=== PATIENT | male | born 1950 | race Two or more races ===

== ENCOUNTER 2024-07-25 11:08 | Inpatient (IN) | payer OTHER ==
[~2024-07-25] VITALS: Ht 165.1 cm; Wt 70.0 kg
[2024-07-25 13:27] LABS: Basophils # (auto) 0 10 ^3/uL (0-0.2); Basophils % (auto) 0.7 % (0.0-2.0); Eosinophils # (auto) 0.1 10 ^3/uL (0-0.8); Eosinophils % (auto) 1.7 % (0.0-7.0); Hematocrit 39.8 % (41.0-53.0); Hemoglobin 13.1 g/dL (13.5-17.5); Lymphocytes # (auto) 1.6 10 ^3/uL (0.4-5.4); Lymphocytes % (auto) 27.6 % (10.0-50.0); Mean Corpuscular Hemoglobin 30.9 pg (28.0-32.0); Mean Corpuscular Hgb Conc. 32.9 g/dL (32.0-36.0); Mean Corpuscular Volume 93.9 fL (80.0-100.0); Monocytes # (auto) 0.4 10 ^3/uL (0-1.3); Monocytes % (auto) 6.2 % (0.0-12.0); Neutrophils # (auto) 3.7 10 ^3/uL (1.6-8.6); Neutrophils % (auto) 63.8 % (37.0-80.0); Nucleated Red Blood Cells % 0.1 %; Platelet Count (auto) 333 10^3/uL (140-450); Red Blood Cells 4.24 10^6/uL (4.5-5.90); White Blood Cell 5.8 10^3/uL (4.4-10.8)
[2024-07-25 13:31] LABS: Urine Bacteria None Seen /hpf (None Seen)
[2024-07-25 13:43] LABS: Urine Blood Negative /uL (Negative); Urine Clarity Clear (Clear); Urine Color Yellow (Yellow); Urine Protein, UAD Negative (Negative); Urine Specific Gravity 1.029 (1.001-1.035); Urine Squamous Epithelial Cell FEW /hpf (<5); Urine Urobilinogen Normal (Negative); Urine WBC 2 /HPF (0-3)
[2024-07-25 13:46] LABS: Alanine Aminotransferase 23 U/L (7-40); Anion Gap 7 (5-15); Aspartate Aminotransferase 17 U/L (13-40); BUN/Creatinine Ratio 11.2 (10.0-20.0); Blood Urea Nitrogen 10 mg/dL (9-23); Calcium 9.8 mg/dL (8.7-10.4); Chloride 100 mmol/L (98-107); Potassium 4.2 mmol/L (3.5-5.1); Sodium 139 mmol/L (136-145); Total Protein 7.4 g/dL (5.7-8.2)
[2024-07-25 13:47] LABS: Carbon Dioxide 32 mmol/L (20-31); Glucose 225 mg/dL (74-106)
[2024-07-25 13:48] LABS: Alkaline Phosphatase 156 U/L (46-116); Bilirubin, Total 0.3 mg/dL (0.2-1.0)
--- NOTE | 2024-07-25 14:20 | DVH ---
EXAM: XY CHEST XRAY 1 VIEW Indication: Pain, r/o pna Technique: Single frontal view of the chest was obtained Comparison: None FINDINGS: Lines and Tubes: None Lungs: Multifocal diffuse interstitial opacities. Pleura: No effusion. No pneumothorax. Cardiomediastinal contours: Unremarkable Bones: No acute osseous abnormality. IMPRESSION: Multifocal diffuse interstitial opacities suggestive of atypical infection.
[2024-07-25] MEDS: SODIUM CHLORIDE 0.9% 1,000 ML IV ONE (14:49)
--- NOTE | 2024-07-25 14:51 | ED.PDOC ---
History of present illness HPI Comments This is a pleasant 73-year-old male who lives alone with a history of uncontrolled diabetes who was brought in by his daughter with a chief complaint of generalized weakness. Daughter reports patient was diagnosed at [facility] with the diabetes one year ago. Patient was prescribed Lantus and Humalog and states he ran out of his medication over six months ago and does not follow up with PCP. Also states he does not check his sugars at home and is nonadherent to his medications. Patient was brought in by Sadia his daughter in the phone number is [phone] Chief Complaint: Diabetes Time Seen by MD: 11:35 History of present illness: Nurses Notes, Medications, Allergies Allergies: Coded Allergies: NO KNOWN ALLERGIES (Unverified , 07/25/24) Home Meds Active Scripts Insulin Glargine (Lantus Solostar) 100 Unit/Ml Inj, 20 UNIT SC BID for 30 Days, #15 ML Prov:EMEKA FLORES MD 07/28/24 Azithromycin (Zithromax) 500 Mg Tab, 500 MG PO DAILY for 4 Days, #4 TAB Prov:EMEKA FLORES MD 07/28/24 Amoxicillin & Pot Clavulanate (AUGMENTIN TABLET) 875 Mg Tb, 875 MG PO BID for 10 Days, #20 TAB Prov:EMEKA FLORES MD 07/28/24 Information Source: Patient Mode of Arrival: Ambulatory All Other Systems: Reviewed and Negative (per hpi) Physical Exam General Appearance: No Apparent Distress, Normal HEENT: Normal ENT Inspection, Pharynx Normal, TMs Normal Neck: Full Range of Motion, Non-Tender, Normal, Normal Inspection Respiratory: Chest Non-Tender, Lungs Clear, No Accessory Muscle Use, No Resp iratory Distress, Normal Breath Sounds Cardiovascular: No Murmur, No Gallop, Regular Rate/Rhythm Breast Exam: Deferred Gastrointestinal: No Organomegaly, Non Tender, No Pulsatile Mass, Normal Bowel Sounds, Soft Genitalia: Deferred Pelvic: Deferred Rectal: Deferred Extremities: No calf tenderness, Normal capillary refill, Normal inspection, Normal range of motion, Non-tender, No pedal edema Musculoskeletal : Apperance: Normal Neurologic: Alert, No Motor Deficits, Normal Affect, Normal Mood, No Sensory Deficits Cerebellar Function: Normal Reflexes: Normal Skin: Dry, Normal Color, Warm Lymphatic: No Adenopathy Was a procedure done? Was a procedure done?: No Differential Diagnosis (DM) Differential Diagnosis: DKA, Electrolyte Abnormality, Hyperglycemia, Hypoglycemia, UTI, Other X-Ray, Labs, Meds, VS Vital Signs Date Time Temp Pulse Resp B/P (MAP) Pulse Ox O2 Delivery O2 Flow Rate FiO2 07/25/24 11:51 89 14 98 Room Air 07/25/24 11:51 98.2 89 14 124/71 (88) 98 98.2 07/25/24 11:34 98.2 88 14 124/71 (88) 98 98.2 Lab Test 07/25/24 13:52 07/25/24 13:30 07/25/24 13:00 07/25/24 12:05 Range/Units Troponin I High Sensitivity < 3 L < 3 L </=54 ng/L Urine Color Yellow Yellow Urine Clarity Clear Clear Urine pH 7.0 5.0-9.0 Urine Specific [place] 1.029 1.001-1.035 Urine Protein Negative Negative Urine Ketones Negative Negative Urine Blood Negative Negative /uL Urine Nitrite Negative Negative Urine Bilirubin Negative Negative Urine Urobilinogen Normal Negative mg/dL Urine Leukocyte Esterase 1+ Negative /uL Urine RBC 9 0 - 3 /hpf Urine Microscopic WBC 2 0-3 /HPF Urine Squamous Epithelial Cells Few <5 /hpf Urine Bacteria None seen None Seen /hpf Urine Glucose 4+ H Normal mg/dL White Blood Count 5.8 4.4-10.8 10^3/uL Red Blood Count 4.24 L 4.5-5.90 10^6/uL Hemoglobin 13.1 L 13.5-17.5 g/dL Hematocrit 39.8 L 41.0-53.0 % Mean Corpuscular Volume 93.9 80.0-100.0 fL Mean Corpuscular Hemoglobin 30.9 28.0-32.0 pg Mean Corpuscular Hemoglobin Concent 32.9 32.0-36.0 g/dL Red Cell Distribution Width 14.0 11.8-14.3 % Platelet Count 333 140-450 10^3/uL Mean Platelet Volume 8.3 6.9-10.8 fL Neutrophils (%) (Auto) 63.8 37.0-80.0 % Lymphocytes (%) (Auto) 27.6 10.0-50.0 % Monocytes (%) (Auto) 6.2 0.0-12.0 % Eosinophils (%) (Auto) 1.7 0.0-7.0 % Basophils (%) (Auto) 0.7 0.0-2.0 % Neutrophils # (Auto) 3.7 1.6-8.6 10 ^3/uL Lymphocytes # (Auto) 1.6 0.4-5.4 10 ^3/uL Monocytes # (Auto) 0.4 0-1.3 10 ^3/uL Eosinophils # (Auto) 0.1 0-0.8 10 ^3/uL Basophils # (Auto) 0 0-0.2 10 ^3/uL Nucleated Red Blood Cells 0.1 % Sodium Level 139 136-145 mmol/L Potassium Level 4.2 3.5-5.1 mmol/L Chloride Level 100 98-107 mmol/L Carbon Dioxide Level 32 H 20-31 mmol/L Anion Gap 7 5-15 Blood Urea Nitrogen 10 9-23 mg/dL Creatinine 0.89 0.700-1.30 mg/dL Glomerular Filtration Rate Calc 91 >90 mL/min BUN/Creatinine Ratio 11.2 10.0-20.0 Serum Glucose 225 H 74-106 mg/dL Lactic Acid Level 0.9 0.4-2.0 mmol/L Calcium Level 9.8 8.7-10.4 mg/dL Total Bilirubin 0.3 0.2-1.0 mg/dL Aspartate Amino Transferase (AST) 17 13-40 U/L Alanine Aminotransferase (ALT) 23 7-40 U/L Alkaline Phosphatase 156 H 46-116 U/L B-Type Natriuretic Peptide 88.47 0-100 pg/mL Total Protein 7.4 5.7-8.2 g/dL Albumin 4.0 3.2-4.8 g/dL POC Glucose 246 H 70-106 mg/dl PATIENT: DOROTHY ZAPATAACCT: [id number]: [id number] : 1950 LOC: ER ROOM / BED: / AGE / SEX: 73 / M ADM STATUS: REG ER SERVICE [id number] ORDERING PHYSICIAN: LOI MEDINA NP PROCEDURE(s): CXR1 - CHEST XRAY 1 VIEW REASON: r/o pna ORDER NUMBER(s): [id number], ACCESSION NUMBER(s): [id number] EXAM: XY CHEST XRAY 1 VIEW Indication: Pain, r/o pna Technique: Single frontal view of the chest was obtained Comparison: None FINDINGS: Lines and Tubes: None Lungs: Multifocal diffuse interstitial opacities. Pleura: No effusion. No pneumothorax. Cardiomediastinal contours: Unremarkable Bones: No acute osseous abnormality. IMPRESSION: Multifocal diffuse interstitial opacities suggestive of atypical infection. ATED BY: JUDD LIVINGSTON MD DICTATED DATE/TIME: 07/25/241416 SIGNED BY: JUDD LIVINGSTON MD SIGNED DATE/TIME: 07/25/241416 X-Ray, Labs, Meds, VS Comment This is a pleasant 73-year-old male who lives alone with a history of uncontrolled diabetes who was brought in by his daughter with a chief complaint of generalized weakness. Labs and imaging were ordered Chest x-ray shows Multifocal diffuse interstitial opacities suggestive of atypical infection. In the emergency department IV Hep-Lock was established and the patient received 1 L normal saline and azithromycin x1 Based on the patient's abnormal x-ray and uncontrolled diabetes, patients case will be discussed with the admitting team for admission Needs DM f/u Will place social work consult Time of 1ST Reevaluation: 14:44 Reevaluation 1ST: Improved Patient Education/Counseling: Diagnosis, Treatment Family Education/Counseling: Diagnosis, Treatment Departure 1 Departure Time of Disposition: 14:49 Impression: Primary Impression: Atypical pneumonia Additional Impressions: Uncontrolled diabetes mellitus Qualified Codes: E13.649 - Other specified diabetes mellitus with hypoglycemia without coma Hyperglycemia Disposition: ADMITTED INPATIENT Condition: Serious e-Prescriptions Insulin Glargine (Lantus Solostar) 100 Unit/Ml Inj 20 UNIT SC BID for 30 Days, #15 ML Prov: EMEKA FLORES MD 07/28/24 Azithromycin (Zithromax) 500 Mg Tab 500 MG PO DAILY for 4 Days, #4 TAB Prov: EMEKA FLORES MD 07/28/24 Amoxicillin & Pot Clavulanate (AUGMENTIN TABLET) 875 Mg Tb 875 MG PO BID for 10 Days, #20 TAB Prov: EMEKA FLORES MD 07/28/24 Critical Care Note Critical Care Time?: No Stability Stability form required: No Heart Score Heart Score: Heart Score Response (Comments) Value History N/A 0 EKG N/A 0 Age N/A 0 Risk Factors N/A 0 Troponin N/A 0 Total 0 LOI MEDINA NP Jul 25, 2024 14:50
[2024-07-25] MEDS: AZITHROMYCIN 500MG/ 250ML 250 ML IV ONE ×2 (14:56→23:17)
--- NOTE | 2024-07-25 16:52 | DVHHP2 ---
History of Present Illness Reason for Visit: generalized weakness History of Present Illness 73-year-old male past medical history diabetes denies surgical history chief complaint patient comes in with generalized this. He has been dealing with these symptoms for about a week. He does state he has a cough with the there was no phlegm no fever no chest pain no shortness with the breath. He denies any calf pain or leg swelling. She denies any nausea or vomiting or diarrhea. According to the ED records patient was on insulin for diabetes he was diagnosed one year ago he is currently not on medication he has been out of the meds for the last six months. When evaluating patient's labs and imaging azithromycin was provided normal saline hemoglobin was 13.1 and 39.8 CO2 was 32 glucose was 225 lactate was negative troponin x2 was negative BNP was negative chest x-ray showed pneumonia. With these findings we will admit for bacterial pneumonia and IV antibiotics Past Medical History Diabetes Past Surgical History Denies surgical history Family History Reviewed, non-contributory to the management of this case. Past Social History Denies drinking smoking or drug use Review of Systems Constitutional: No: Fever, Chills, Sweats, Weakness, Malaise, Other Eyes: No: Pain, Vision change, Conjunctivae inflammation, Eyelid inflammation, Other, Redness ENT: No: Ear pain, Ear discharge, Nose pain, Nose discharge, Nose congestion, Mouth pain, Mouth swelling, Throat pain, Throat swelling, Other Respiratory: Cough, Shortness of breath, SOB with excertion; No: Dry, Wheezing, Hemoptysis, Pleuritic Pain, Sputum, Wheezing, Other Cardiovascular: No: Chest Pain, Palpitations, Orthopnea, Paroxysmal Noc. Dyspnea, Edema, Lt Headedness, Other Gastrointestinal: No: Nausea, Vomiting, Abdominal Pain, Diarrhea, Constipation, Melena, Hematochezia, Other Genitourinary: No Dysuria, No Frequency, No Incontinence, No Hematuria, No Retention, No Other Musculoskeletal: No: other, neck pain, shoulder pain, arm pain, back pain, hand pain, leg pain, foot pain Skin: No: Rash, Lesions, Jaundice, Bruising, Other Neurological: Weakness; No: Numbness, Incoordination, Change in speech, Confusion, Seizures, Other Allergies: Coded Allergies: NO KNOWN ALLERGIES (Unverified , 07/25/24) Exam Vital Signs Vital Signs Date Time Temp Pulse Resp B/P (MAP) Pulse Ox O2 Delivery O2 Flow Rate FiO2 07/25/24 11:51 89 14 98 Room Air 07/25/24 11:51 98.2 124/71 (88) 98.2 General Appearance: Alert, Oriented X3, Cooperative, No acute distress HEENT: Atraumatic, PERRLA, EOMI, Mucous membr. moist/pink Respiratory: Other (coarse rales heard throughout ) Cardiovascular: Regular rate, Normal S1, Normal S2, No murmurs Abdominal: Normal bowel sounds, Soft, No tenderness, No hepatospenomegaly, No masses Extremities: No clubbing, No cyanosis, No edema, Normal pulses, No tenderness/swelling Skin: No rashes, No breakdown, No significant lesion Neuro: Normal gait, Normal speech, Strength at 5/5 X4 ext, Normal tone, Sensation intact, Cranial nerves 3-12 NL Psych/Mental Status: Mental status NL, Mood NL Labs/Xrays Reviewed Labs Labs I reviewed labs, imaging CT scan abdomen pelvis, EKG and all diagnostic studies on this patient from ED records and the medical chart Chest x-ray found pneumonia Test 07/25/24 13:52 07/25/24 13:30 07/25/24 13:00 07/25/24 12:05 Range/Units Troponin I High Sensitivity < 3 L </=54 ng/L Urine Color Yellow Yellow Urine Clarity Clear Clear Urine pH 7.0 5.0-9.0 Urine Specific [place] 1.029 1.001-1.035 Urine Protein Negative Negative Urine Ketones Negative Negative Urine Blood Negative Negative /uL Urine Nitrite Negative Negative Urine Bilirubin Negative Negative Urine Urobilinogen Normal Negative mg/dL Urine Leukocyte Esterase 1+ Negative /uL Urine RBC 9 0 - 3 /hpf Urine Microscopic WBC 2 0-3 /HPF Urine Squamous Epithelial Cells Few <5 /hpf Urine Bacteria None seen None Seen /hpf Urine Glucose 4+ H Normal mg/dL White Blood Count 5.8 4.4-10.8 10^3/uL Red Blood Count 4.24 L 4.5-5.90 10^6/uL Hemoglobin 13.1 L 13.5-17.5 g/dL Hematocrit 39.8 L 41.0-53.0 % Mean Corpuscular Volume 93.9 80.0-100.0 fL Mean Corpuscular Hemoglobin 30.9 28.0-32.0 pg Mean Corpuscular Hemoglobin Concent 32.9 32.0-36.0 g/dL Red Cell Distribution Width 14.0 11.8-14.3 % Platelet Count 333 140-450 10^3/uL Mean Platelet Volume 8.3 6.9-10.8 fL Neutrophils (%) (Auto) 63.8 37.0-80.0 % Lymphocytes (%) (Auto) 27.6 10.0-50.0 % Monocytes (%) (Auto) 6.2 0.0-12.0 % Eosinophils (%) (Auto) 1.7 0.0-7.0 % Basophils (%) (Auto) 0.7 0.0-2.0 % Neutrophils # (Auto) 3.7 1.6-8.6 10 ^3/uL Lymphocytes # (Auto) 1.6 0.4-5.4 10 ^3/uL Monocytes # (Auto) 0.4 0-1.3 10 ^3/uL Eosinophils # (Auto) 0.1 0-0.8 10 ^3/uL Basophils # (Auto) 0 0-0.2 10 ^3/uL Nucleated Red Blood Cells 0.1 % Sodium Level 139 136-145 mmol/L Potassium Level 4.2 3.5-5.1 mmol/L Chloride Level 100 98-107 mmol/L Carbon Dioxide Level 32 H 20-31 mmol/L Anion Gap 7 5-15 Blood Urea Nitrogen 10 9-23 mg/dL Creatinine 0.89 0.700-1.30 mg/dL Glomerular Filtration Rate Calc 91 >90 mL/min BUN/Creatinine Ratio 11.2 10.0-20.0 Serum Glucose 225 H 74-106 mg/dL Lactic Acid Level 0.9 0.4-2.0 mmol/L Calcium Level 9.8 8.7-10.4 mg/dL Total Bilirubin 0.3 0.2-1.0 mg/dL Aspartate Amino Transferase (AST) 17 13-40 U/L Alanine Aminotransferase (ALT) 23 7-40 U/L Alkaline Phosphatase 156 H 46-116 U/L B-Type Natriuretic Peptide 88.47 0-100 pg/mL Total Protein 7.4 5.7-8.2 g/dL Albumin 4.0 3.2-4.8 g/dL POC Glucose 246 H 70-106 mg/dl Assessment/Plan Assessment/Plan acute bacterial community acquired pneumonia found on cxr ordered azithromax and ceftriaxone for now ordered o2 prn to keep sats .92% sputum prn uncontrolled type 2 dm without dka ISS hemoglobin a1c can be ordered by rounding team fen/ppx diet ivf for now no gi ppx since no hx of gerds or gi bleed scd lovenox plan admit to medicine for management of glucose and pna Plan discussed with: Patient Date of Service: Jul 25, 2024 Billing Provider: JOSE CARLOS ELENA DNP Common Visit Codes: [id number] INP/OBS CARE (HIGH) JOSE CARLOS ELENA DNP Jul 25, 2024 16:52
[2024-07-25] MEDS ORDERED: NITROGLYCERIN 0.4 MG SL TAB SL PRN (19:00)
[2024-07-25] MEDS ORDERED: ONDANSETRON HCL 4 MG/2 ML VIAL IV PRN (19:00)
[2024-07-25] MEDS ORDERED: DEXTROSE (50%) 50ML SYRG IV PRN (19:00)
[2024-07-25] MEDS ORDERED: DOCUSATE SOD 100 MG CAP PO PRN (19:00)
[2024-07-25] MEDS ORDERED: MORPHINE SULFATE INJ 2 MG/ml SYRG IV PRN (19:00)
[2024-07-25] MEDS: InsuLIN REG 1unit/0.01ml Soln (100units/ml) SC SCH (22:00)
[2024-07-25] MEDS: ACCU-CHEK COMFORT CURVE STRIP VI SCH (22:54)
[2024-07-25] MEDS: cefTRIAXone 1GM/50ML D5W 50 ML IV ONE (22:59)
[2024-07-25 23:13] VITALS: BP 115/76; PULSE 70; RESP 18; TEMP 97.7; O2SAT 97
[2024-07-26] VITALS (7 sets, daily range): BP systolic 105–120; BP diastolic 64–78; PULSE 68–76; RESP 16–19; TEMP 97.7–98.3; O2SAT 97–99
[2024-07-26] MEDS: SODIUM CHLORIDE 0.9% 1,000 ML IV SCH (04:08)
[2024-07-26] MEDS: InsuLIN REG 1unit/0.01ml Soln (100units/ml) SC SCH (06:16)
[2024-07-26 07:22] LABS: Basophils # (auto) 0.1 10 ^3/uL (0-0.2); Basophils % (auto) 0.9 % (0.0-2.0); Eosinophils # (auto) 0.2 10 ^3/uL (0-0.8); Eosinophils % (auto) 3.1 % (0.0-7.0); Hemoglobin 11.9 g/dL (13.5-17.5); Lymphocytes # (auto) 2.1 10 ^3/uL (0.4-5.4); Lymphocytes % (auto) 36.7 % (10.0-50.0); Mean Corpuscular Hemoglobin 31.9 pg (28.0-32.0); Monocytes # (auto) 0.5 10 ^3/uL (0-1.3); Monocytes % (auto) 8.2 % (0.0-12.0); Neutrophils % (auto) 51.1 % (37.0-80.0); Nucleated Red Blood Cells % 0.1 %; Platelet Count (auto) 282 10^3/uL (140-450); Red Blood Cells 3.73 10^6/uL (4.5-5.90); Red Cell Distribution Width 13.8 % (11.8-14.3); White Blood Cell 5.9 10^3/uL (4.4-10.8)
[2024-07-26 07:59] LABS: Alanine Aminotransferase 18 U/L (7-40); Alkaline Phosphatase 116 U/L (46-116); Anion Gap 10 (5-15); Aspartate Aminotransferase 15 U/L (13-40); Calcium 9.2 mg/dL (8.7-10.4); Carbon Dioxide 27 mmol/L (20-31); Chloride 103 mmol/L (98-107); Glucose 107 mg/dL (74-106); Potassium 3.5 mmol/L (3.5-5.1); Sodium 140 mmol/L (136-145)
[2024-07-26 08:00] LABS: Albumin 3.3 g/dL (3.2-4.8); Bilirubin, Total 0.3 mg/dL (0.2-1.0); Total Protein 6.4 g/dL (5.7-8.2)
[2024-07-26] MEDS: cefTRIAXone 1GM/50ML D5W 50 ML IV SCH (08:44)
[2024-07-26 08:49] LABS: BUN/Creatinine Ratio 18.6 (10.0-20.0); Blood Urea Nitrogen 13 mg/dL (9-23)
[2024-07-26] MEDS: AZITHROMYCIN 500MG/ 250ML 250 ML IV SCH (08:49)
[2024-07-26] MEDS: ENOXAPARIN SOD 40 MG/0.4 ML SYRINGE SC SCH (08:49)
--- NOTE | 2024-07-26 15:58 | DVHPN2 ---
Subjective Continues to complain of cough; Amharic-speaking; staff translated Reviewed: Care Plan, H&P, Labs, Medications, Previous Orders, Radiology Changes from previous H/P or p: No Changes Objective Vitals Vital Signs Date Time Temp Pulse Resp B/P (MAP) Pulse Ox O2 Delivery O2 Flow Rate FiO2 07/26/24 13:30 97.9 69 18 105/68 (80) 99 97.9 07/26/24 03:33 Room Air* 0 21 Intake/Output Intake and Output 07/26/24 07:00 Intake Total 125 ml Output Total 550 ml Balance -425 ml Intake Oral 125 ml Output Urine Total 550 ml General Appearance: Alert, Oriented X3, Cooperative, No acute distress HEENT: Atraumatic Lungs: Other (Scattered crackles) Cardiovascular: Regular rate, Normal S1, Normal S2 Abdomen: Normal bowel sounds, Soft, No tenderness Extremities: No edema Neuro: Normal speech, Cranial nerves 3-12 NL Psych/Mental Status: Mental status NL, Mood NL Medications Current Medications Medications Dose Ordered Sig/Vishnu Route Start Time Stop Time Status Last Admin Dose Admin Sodium Chloride 1,000 ml @ 120 mls/hr Q8H20M IV 07/25/24 19:00 07/26/24 04:08 120 MLS/HR Ondansetron HCl 4 mg Q4HP PRN IV 07/25/24 19:00 Docusate Sodium 100 mg BIDPRN PRN PO 07/25/24 19:00 Enoxaparin Sodium 40 mg DAILY SC 07/26/24 10:00 07/26/24 08:49 40 MG Morphine Sulfate 2 mg Q4HPRN PRN IV 07/25/24 19:00 Nitroglycerin 0.4 mg Q5MINP PRN SL 07/25/24 19:00 Diagnostic Test (Pha) 1 strip ACHS 07/25/24 22:00 07/26/24 11:56 1 STRIP Insulin Human Regular HS SC 07/25/24 22:00 Insulin Human Regular AC SC 07/26/24 07:00 07/26/24 11:58 12 UNITS Dextrose 50 ml UD PRN IV 07/25/24 19:00 Ceftriaxone Sodium 50 ml @ 100 mls/hr DAILY@09 IV 07/26/24 09:00 07/26/24 08:44 100 MLS/HR Azithromycin 250 ml @ 125 mls/hr DAILY IV 07/26/24 10:00 07/26/24 08:49 125 MLS/HR Laboratory Results Laboratory Tests 07/26/24 04:57 Chemistry Test 07/26/24 04:57 Albumin 3.3 g/dL (3.2-4.8) Calcium Level 9.2 mg/dL (8.7-10.4) Total Protein 6.4 g/dL (5.7-8.2) LFT Test 07/26/24 04:57 Alanine Aminotransferase (ALT) 18 U/L (7-40) Alkaline Phosphatase 116 U/L (46-116) Aspartate Amino Transferase (AST) 15 U/L (13-40) Total Bilirubin 0.3 mg/dL (0.2-1.0) Urinalysis Test 07/25/24 13:30 Urine Color Yellow (Yellow) Urine Clarity Clear (Clear) Urine pH 7.0 (5.0-9.0) Urine Specific [place] 1.029 (1.001-1.035) Urine Protein Negative (Negative) Urine Ketones Negative (Negative) Urine Blood Negative /uL (Negative) Urine Nitrite Negative (Negative) Urine Bilirubin Negative (Negative) Urine Urobilinogen Normal mg/dL (Negative) Urine Leukocyte Esterase 1+ /uL (Negative) Urine RBC 9 /hpf (0 - 3) Urine Microscopic WBC 2 /HPF (0-3) Urine Squamous Epithelial Cells Few /hpf (<5) Urine Bacteria None seen /hpf (None Seen) Urine Glucose 4+ mg/dL (Normal) H Labs and/or images reviewed: Labs reviewed by me, Image(s) reviewed by me Assessment/Plan Assessment/Plan A 73-year-old male patient; with past medical history of uncontrolled insulin- dependent diabetes mellitus type 2; presented to emergency department. #Multifocal pneumonia causing cough; no sputum reported by the patient; reviewed chest x-ray; ordered testing for influenza A/B and COVID-19; continue IV antibiotics; saturating well on room air; continue monitoring #Uncontrolled insulin-dependent diabetes mellitus type 2 with hyperglycemia; started on long-acting insulin; continue insulin sliding scale with hypoglycemia; ordered hemoglobin A1c; continue monitoring #Abnormal urinalysis; increased RBCs; to repeat urinalysis; continue monitoring #Normocytic anemia; most likely inflammatory; no signs/symptoms of bleeding; continue monitoring Goals of care discussed with the patient for 20 minutes; full code Late Entry. This medical document was created using an electronic medical record system with computerized dictation system. Although this document has been carefully reviewed, there might still be some phonetic and typographical errors. These areas are purely typographical due to imperfections of the software programs, and do not reflect any compromise in the patient's medical care. Plan discussed with: Patient, Other (Nurse) Date of Service: Jul 26, 2024 Billing Provider: EMEKA FLORES MD Common Visit Codes: [id number] INP/OBS CARE(HIGH) Secondary Visit Codes: [id number] CARE PLAN 30 MINUTES (20 minutes) EMEKA FLORES MD Jul 26, 2024 15:58
[2024-07-26 17:36] LABS: COVID19 ANTIGEN SOFIA FIA NEGATIVE (NEGATIVE)
[2024-07-26 17:37] LABS: Rapid Influenza A Negative (Negative); Rapid Influenza B Negative (Negative)
[2024-07-26] MEDS: INSULIN LANTUS (GLARGINE) 1 /0.01ml (100units/ml) SC SCH (21:45)
[2024-07-27 01:00] VITALS: BP 106/72; PULSE 63; RESP 17; TEMP 98.1; O2SAT 96
[2024-07-27 05:00] VITALS: BP 104/62; PULSE 57; RESP 16; TEMP 98.1; O2SAT 99
[2024-07-27 06:44] LABS: Potassium 3.6 mmol/L (3.5-5.1); Sodium 140 mmol/L (136-145)
[2024-07-27 06:45] LABS: Anion Gap 6 (5-15); Calcium 9.1 mg/dL (8.7-10.4); Carbon Dioxide 27 mmol/L (20-31)
[2024-07-27 06:46] LABS: Chloride 107 mmol/L (98-107)
[2024-07-27 06:50] LABS: BUN/Creatinine Ratio 17.1 (10.0-20.0); Blood Urea Nitrogen 12 mg/dL (9-23)
[2024-07-27 06:55] LABS: Glucose 111 mg/dL (74-106)
[2024-07-27 07:03] LABS: Basophils # (auto) 0 10 ^3/uL (0-0.2); Eosinophils # (auto) 0.2 10 ^3/uL (0-0.8); Eosinophils % (auto) 3.8 % (0.0-7.0); Hematocrit 37.1 % (41.0-53.0); Hemoglobin 12.7 g/dL (13.5-17.5); Lymphocytes # (auto) 1.9 10 ^3/uL (0.4-5.4); Lymphocytes % (auto) 40.9 % (10.0-50.0); Mean Corpuscular Hemoglobin 31.9 pg (28.0-32.0); Mean Corpuscular Hgb Conc. 34.3 g/dL (32.0-36.0); Mean Corpuscular Volume 93.1 fL (80.0-100.0); Monocytes # (auto) 0.4 10 ^3/uL (0-1.3); Monocytes % (auto) 8.4 % (0.0-12.0); Neutrophils # (auto) 2.1 10 ^3/uL (1.6-8.6); Neutrophils % (auto) 45.9 % (37.0-80.0); Nucleated Red Blood Cells % 0.2 %; Platelet Count (auto) 260 10^3/uL (140-450); Red Blood Cells 3.99 10^6/uL (4.5-5.90); Red Cell Distribution Width 14.3 % (11.8-14.3); White Blood Cell 4.6 10^3/uL (4.4-10.8)
[2024-07-27 09:00] VITALS: BP 108/68; PULSE 64; RESP 16; TEMP 98.2; O2SAT 96
--- NOTE | 2024-07-27 09:12 | DVHPN2 ---
Subjective Continues to complain of cough; Khmer-speaking; staff translated Reviewed: Care Plan, H&P, Labs, Medications, Previous Orders, Radiology Changes from previous H/P or p: No Changes Objective Vitals Vital Signs Date Time Temp Pulse Resp B/P (MAP) Pulse Ox O2 Delivery O2 Flow Rate FiO2 07/27/24 08:01 Room Air* 0 21 07/27/24 05:00 98.1 57 16 104/62 (76) 99 98.1 Intake/Output Intake and Output 07/27/24 06:59 Intake Total 1875 ml Output Total 1300 ml Balance 575 ml Intake Oral 725 ml IV Total 1150 ml Output Urine Total 1300 ml General Appearance: Alert, Oriented X3, Cooperative, No acute distress HEENT: Atraumatic Lungs: Other (Scattered crackles) Cardiovascular: Regular rate, Normal S1, Normal S2 Abdomen: Normal bowel sounds, Soft, No tenderness Extremities: No edema Neuro: Normal speech, Cranial nerves 3-12 NL Psych/Mental Status: Mental status NL, Mood NL Medications Current Medications Medications Dose Ordered Sig/Vishnu Route Start Time Stop Time Status Last Admin Dose Admin Sodium Chloride 1,000 ml @ 120 mls/hr Q8H20M IV 07/25/24 19:00 07/27/24 05:43 120 MLS/HR Ondansetron HCl 4 mg Q4HP PRN IV 07/25/24 19:00 Docusate Sodium 100 mg BIDPRN PRN PO 07/25/24 19:00 Enoxaparin Sodium 40 mg DAILY SC 07/26/24 10:00 07/26/24 08:49 40 MG Morphine Sulfate 2 mg Q4HPRN PRN IV 07/25/24 19:00 Nitroglycerin 0.4 mg Q5MINP PRN SL 07/25/24 19:00 Diagnostic Test (Pha) 1 strip ACHS 07/25/24 22:00 07/27/24 06:21 1 STRIP Insulin Human Regular HS SC 07/25/24 22:00 07/26/24 21:45 6 UNITS Insulin Human Regular AC SC 07/26/24 07:00 07/26/24 11:58 12 UNITS Dextrose 50 ml UD PRN IV 07/25/24 19:00 Ceftriaxone Sodium 50 ml @ 100 mls/hr DAILY@09 IV 07/26/24 09:00 07/27/24 08:00 100 MLS/HR Azithromycin 250 ml @ 125 mls/hr DAILY IV 07/26/24 10:00 07/26/24 08:49 125 MLS/HR Insulin Glargine 10 units BID@0700,2200 SC 07/26/24 22:00 07/27/24 06:19 10 UNITS Laboratory Results Laboratory Tests 07/27/24 05:02 Chemistry Test 07/27/24 05:02 Calcium Level 9.1 mg/dL (8.7-10.4) HgA1c, TSH Test 07/27/24 05:02 Hemoglobin A1c > 14.0 % A1C (<5.7) H Urinalysis Test 07/25/24 13:30 Urine Color Yellow (Yellow) Urine Clarity Clear (Clear) Urine pH 7.0 (5.0-9.0) Urine Specific [place] 1.029 (1.001-1.035) Urine Protein Negative (Negative) Urine Ketones Negative (Negative) Urine Blood Negative /uL (Negative) Urine Nitrite Negative (Negative) Urine Bilirubin Negative (Negative) Urine Urobilinogen Normal mg/dL (Negative) Urine Leukocyte Esterase 1+ /uL (Negative) Urine RBC 9 /hpf (0 - 3) Urine Microscopic WBC 2 /HPF (0-3) Urine Squamous Epithelial Cells Few /hpf (<5) Urine Bacteria None seen /hpf (None Seen) Urine Glucose 4+ mg/dL (Normal) H Labs and/or images reviewed: Labs reviewed by me, Image(s) reviewed by me Assessment/Plan Assessment/Plan A 73-year-old male patient; with past medical history of 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 #Multifocal pneumonia causing cough; no sputum reported by the patient; reviewed chest x-ray; tested negative for influenza A/B and COVID-19; continue IV antibiotics; saturating well on room air; continue monitoring #Uncontrolled insulin-dependent diabetes mellitus type 2 with hyperglycemia; to increase the dose of long-acting insulin; continue insulin sliding scale with hypoglycemia; hemoglobin A1c >14%; continue monitoring #Abnormal urinalysis; increased RBCs; repeat urinalysis WNL; continue monitoring #Normocytic anemia; most likely inflammatory; no signs/symptoms of bleeding; continue monitoring To be discharged tomorrow on oral antibiotics and adjusted dose of insulin This medical document was created using an electronic medical record system with computerized dictation system. Although this document has been carefully reviewed, there might still be some phonetic and typographical errors. These areas are purely typographical due to imperfections of the software programs, and do not reflect any compromise in the patient's medical care. Plan discussed with: Patient, Other (Nurse) My Orders Orders - EMEKA FLORES MD Procedure Category Date Status Time Insulin Lantus PHA 07/26/24 In Process (Glargine) (Lantus) 22:00 Urinalysis LAB 07/27/24 Uncollected 04:00 Date of Service: Jul 27, 2024 Billing Provider: EMEKA FLORES MD Common Visit Codes: [id number] INP/OBS CARE(HIGH) EMEKA FLORES MD Jul 27, 2024 09:12
[2024-07-27 12:01] LABS: Urine Bacteria None Seen /hpf (None Seen)
[2024-07-27 12:13] LABS: Urine Blood Negative /uL (Negative); Urine Budding Yeast OCCASIONAL /hpf (None Seen); Urine Clarity Clear (Clear); Urine Color Light-Yellow (Yellow); Urine Protein, UAD Negative (Negative); Urine Specific Gravity 1.013 (1.001-1.035); Urine Squamous Epithelial Cell FEW /hpf (<5); Urine Urobilinogen Normal (Negative); Urine WBC 2 /HPF (0-3); Urine pH 5.5 (5.0-9.0)
[2024-07-27 13:00] VITALS: BP 116/80; PULSE 65; RESP 16; TEMP 97.9; O2SAT 97
[2024-07-27 17:00] VITALS: BP 100/70; PULSE 83; RESP 18; TEMP 98; O2SAT 96
[2024-07-27 21:00] VITALS: BP 102/64; PULSE 65; RESP 18; TEMP 98.2; O2SAT 95
[2024-07-27] MEDS: INSULIN LANTUS (GLARGINE) 1 /0.01ml (100units/ml) SC SCH (21:43)
[2024-07-28 01:00] VITALS: BP 100/59; PULSE 59; RESP 18; TEMP 97.9; O2SAT 96
[2024-07-28 05:00] VITALS: BP 104/72; PULSE 63; RESP 18; TEMP 97.5; O2SAT 97
--- NOTE | 2024-07-28 05:09 | DVHPN2 ---
Subjective No more cough; Lithuanian-speaking; staff translated Reviewed: Care Plan, H&P, Labs, Medications, Previous Orders, Radiology Changes from previous H/P or p: Changes Objective Vitals Vital Signs Date Time Temp Pulse Resp B/P (MAP) Pulse Ox O2 Delivery O2 Flow Rate FiO2 07/28/24 01:00 97.9 59 18 100/59 (73) 96 97.9 07/27/24 19:30 Room Air* 0 21 Intake/Output Intake and Output 07/28/24 07:00 Intake Total 1990 ml Output Total 600 ml Balance 1390 ml Intake Oral 450 ml IV Total 1540 ml Output Urine Total 600 ml General Appearance: Alert, Oriented X3, Cooperative, No acute distress HEENT: Atraumatic Lungs: Other (Scattered crackles) Cardiovascular: Regular rate, Normal S1, Normal S2 Abdomen: Normal bowel sounds, Soft, No tenderness Extremities: No edema Neuro: Normal speech, Cranial nerves 3-12 NL Psych/Mental Status: Mental status NL, Mood NL Medications Current Medications Medications Dose Ordered Sig/Vishnu Route Start Time Stop Time Status Last Admin Dose Admin Sodium Chloride 1,000 ml @ 120 mls/hr Q8H20M IV 07/25/24 19:00 07/27/24 21:48 120 MLS/HR Ondansetron HCl 4 mg Q4HP PRN IV 07/25/24 19:00 Docusate Sodium 100 mg BIDPRN PRN PO 07/25/24 19:00 Enoxaparin Sodium 40 mg DAILY SC 07/26/24 10:00 07/27/24 09:43 40 MG Morphine Sulfate 2 mg Q4HPRN PRN IV 07/25/24 19:00 Nitroglycerin 0.4 mg Q5MINP PRN SL 07/25/24 19:00 Diagnostic Test (Pha) 1 strip ACHS 07/25/24 22:00 07/27/24 21:46 1 STRIP Insulin Human Regular HS SC 07/25/24 22:00 07/27/24 21:44 6 UNITS Insulin Human Regular AC SC 07/26/24 07:00 07/27/24 16:41 2 UNITS Dextrose 50 ml UD PRN IV 07/25/24 19:00 Ceftriaxone Sodium 50 ml @ 100 mls/hr DAILY@09 IV 07/26/24 09:00 07/27/24 08:00 100 MLS/HR Azithromycin 250 ml @ 125 mls/hr DAILY IV 07/26/24 10:00 07/27/24 09:42 125 MLS/HR Insulin Glargine 15 units BID@0700,2200 SC 07/27/24 22:00 07/27/24 21:43 15 UNITS Laboratory Results Laboratory Tests 07/27/24 05:02 Urinalysis Test 07/27/24 08:00 Urine Color Light-yellow (Yellow) Urine Clarity Clear (Clear) Urine pH 5.5 (5.0-9.0) Urine Specific [place] 1.013 (1.001-1.035) Urine Protein Negative (Negative) Urine Ketones Negative (Negative) Urine Blood Negative /uL (Negative) Urine Nitrite Negative (Negative) Urine Bilirubin Negative (Negative) Urine Urobilinogen Normal mg/dL (Negative) Urine Leukocyte Esterase Negative /uL (Negative) Urine RBC <1 /hpf (0 - 3) Urine Microscopic WBC 2 /HPF (0-3) Urine Squamous Epithelial Cells Few /hpf (<5) Urine Bacteria None seen /hpf (None Seen) Urine Yeast (Budding) Occasional /hpf (None Urine Glucose Normal mg/dL (Normal) Labs and/or images reviewed: Labs reviewed by me, Image(s) reviewed by me Assessment/Plan Assessment/Plan A 73-year-old male patient; with past medical history of 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 #Multifocal pneumonia causing cough; no sputum reported by the patient; reviewed chest x-ray; tested negative for influenza A/B and COVID-19; received IV antibiotics as inpatient; saturating well on room air; discharged on oral antibiotics; to follow up with discharge clinic within one week or with the primary care provider within one week #Uncontrolled insulin-dependent diabetes mellitus type 2 with hyperglycemia; hemoglobin A1c >14%; discharged on increased dose of long-acting insulin; to follow up with discharge clinic within one week or with the primary care provider within one week #Abnormal urinalysis; increased RBCs; repeat urinalysis WNL; to follow up with discharge clinic within one week or with primary care provider within one week #Normocytic anemia; most likely inflammatory; no signs/symptoms of bleeding; to follow up with discharge clinic within one week or with the primary care provider within one week To be discharged on oral antibiotics and adjusted higher dose of long-acting insulin This medical document was created using an electronic medical record system with computerized dictation system. Although this document has been carefully reviewed, there might still be some phonetic and typographical errors. These areas are purely typographical due to imperfections of the software programs, and do not reflect any compromise in the patient's medical care. Plan discussed with: Patient, Other (Nurse) My Orders Orders - EMEKA FLORES MD Procedure Category Date Status Time Insulin Lantus PHA 07/27/24 In Process (Glargine) (Lantus) 22:00 Date of Service: Jul 28, 2024 Billing Provider: EMEKA FLORES MD Common Visit Codes: [id number] INP/OBS CARE(MOD) EMEKA FLORES MD Jul 28, 2024 05:09
[2024-07-28 07:44] VITALS: BP 109/65; PULSE 53; RESP 18; TEMP 98.6; O2SAT 96
[2024-07-28] MEDS ORDERED: INSUINJ37 SC (13:36)
[2024-07-28] MEDS ORDERED: AUG875T PO (13:36)
[2024-07-28] MEDS ORDERED: AZIT500T PO (13:36)
--- NOTE | 2024-07-28 13:40 | DVHDS2 ---
Discharge Summary Date of Admission Jul 25, 2024 at 18:50 Date of Discharge: Jul 28, 2024 Admitting Diagnosis Cough Labs/Diagnostic Data: Laboratory Results Test 07/28/24 11:13 07/27/24 08:00 07/27/24 05:02 07/26/24 17:08 POC Glucose 244 mg/dl (70-106) Urine Color Light-yellow (Yellow) Urine Clarity Clear (Clear) Urine pH 5.5 (5.0-9.0) Urine Specific [place] 1.013 (1.001-1.035) Urine Protein Negative (Negative) Urine Ketones Negative (Negative) Urine Blood Negative /uL (Negative) Urine Nitrite Negative (Negative) Urine Bilirubin Negative (Negative) Urine Urobilinogen Normal mg/dL (Negative) Urine Leukocyte Esterase Negative /uL (Negative) Urine RBC <1 /hpf (0 - 3) Urine Microscopic WBC 2 /HPF (0-3) Urine Squamous Epithelial Cells Few /hpf (<5) Urine Bacteria None seen /hpf (None Seen) Urine Yeast (Budding) Occasional /hpf (None Urine Glucose Normal mg/dL (Normal) White Blood Count 4.6 10^3/uL (4.4-10.8) Red Blood Count 3.99 10^6/uL (4.5-5.90) Hemoglobin 12.7 g/dL (13.5-17.5) Hematocrit 37.1 % (41.0-53.0) Mean Corpuscular Volume 93.1 fL (80.0-100.0) Mean Corpuscular Hemoglobin 31.9 pg (28.0-32.0) Mean Corpuscular Hemoglobin Concent 34.3 g/dL (32.0-36.0) Red Cell Distribution Width 14.3 % (11.8-14.3) Platelet Count 260 10^3/uL (140-450) Mean Platelet Volume 8.2 fL (6.9-10.8) Neutrophils (%) (Auto) 45.9 % (37.0-80.0) Lymphocytes (%) (Auto) 40.9 % (10.0-50.0) Monocytes (%) (Auto) 8.4 % (0.0-12.0) Eosinophils (%) (Auto) 3.8 % (0.0-7.0) Basophils (%) (Auto) 1.0 % (0.0-2.0) Neutrophils # (Auto) 2.1 10 ^3/uL (1.6-8.6) Lymphocytes # (Auto) 1.9 10 ^3/uL (0.4-5.4) Monocytes # (Auto) 0.4 10 ^3/uL (0-1.3) Eosinophils # (Auto) 0.2 10 ^3/uL (0-0.8) Basophils # (Auto) 0 10 ^3/uL (0-0.2) Nucleated Red Blood Cells 0.2 % Sodium Level 140 mmol/L (136-145) Potassium Level 3.6 mmol/L (3.5-5.1) Chloride Level 107 mmol/L (98-107) Carbon Dioxide Level 27 mmol/L (20-31) Anion Gap 6 (5-15) Blood Urea Nitrogen 12 mg/dL (9-23) Creatinine 0.70 mg/dL (0.700-1.30) Glomerular Filtration Rate Calc 98 mL/min (>90) BUN/Creatinine Ratio 17.1 (10.0-20.0) Serum Glucose 111 mg/dL (74-106) Hemoglobin A1c > 14.0 % A1C (<5.7) Calcium Level 9.1 mg/dL (8.7-10.4) Influenza Type A Antigen Negative (Negative) Influenza Type B Antigen Negative (Negative) SARS-CoV-2 Antigen (Rapid) Negative (NEGATIVE) Test 07/26/24 04:57 07/25/24 13:52 07/25/24 13:00 Total Bilirubin 0.3 mg/dL (0.2-1.0) Aspartate Amino Transferase (AST) 15 U/L (13-40) Alanine Aminotransferase (ALT) 18 U/L (7-40) Alkaline Phosphatase 116 U/L (46-116) Total Protein 6.4 g/dL (5.7-8.2) Albumin 3.3 g/dL (3.2-4.8) Troponin I High Sensitivity < 3 ng/L (</=54) Lactic Acid Level 0.9 mmol/L (0.4-2.0) B-Type Natriuretic Peptide 88.47 pg/mL (0-100) Other Laboratory Tests 07/27/24 05:02 Brief Hx & Hospital Course: A 73-year-old male patient; with past medical history of 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 #Multifocal pneumonia causing cough; no sputum reported by the patient; reviewed chest x-ray; tested negative for influenza A/B and COVID-19; received IV antibiotics as inpatient; saturating well on room air; discharged on oral antibiotics; to follow up with discharge clinic within one week or with the primary care provider within one week #Uncontrolled insulin-dependent diabetes mellitus type 2 with hyperglycemia; hemoglobin A1c >14%; discharged on increased dose of long-acting insulin; insulin pen needles sent from Dr. Flores's clinic; to follow up with discharge clinic within one week or with the primary care provider within one week #Abnormal urinalysis; increased RBCs; repeat urinalysis WNL; to follow up with discharge clinic within one week or with primary care provider within one week #Normocytic anemia; most likely inflammatory; no signs/symptoms of bleeding; to follow up with discharge clinic within one week or with the primary care provider within one week Discharged on oral antibiotics and adjusted higher dose of long-acting insulin This medical document was created using an electronic medical record system with computerized dictation system. Although this document has been carefully reviewed, there might still be some phonetic and typographical errors. These areas are purely typographical due to imperfections of the software programs, and do not reflect any compromise in the patient's medical care. Condition at Discharge: Stable Final Diagnosis/Problems List #Multifocal pneumonia causing cough #Uncontrolled insulin-dependent diabetes mellitus type 2 with hyperglycemia Rest of diagnoses as above Discharge Disposition: Home Discharge Instruct/Medications Diet: Consistent carbohydrate Activity: No Restrictions, As Tolerated Follow Up/Referral: Continuity clinic on Wednesday07/31/2024; or with primary care provider within one week Medications: Oral antibiotics, and insulin Discharge Statement: "Patient was advised to return to the ER or call 911 if any headaches, dizziness, shortness of breath, chest pain, abdominal pain, bleeding, fevers, or worsening of medical condition. Patient was counseled about treatment plan, medications, possible side effects, patientverbalized understanding. All questions were answered to the best of my ability. This discharge took greater then 30 minutes in planning, reviewing documentation, counseling the patient, and discussing with other team members." ASSESSMENT ASSESSMENT Assessment #Multifocal pneumonia causing cough #Uncontrolled insulin-dependent diabetes mellitus type 2 with hyperglycemia Date of Service: Jul 28, 2024 Billing Provider: EMEKA FLORES MD Common Visit Codes: [id number] DISCH DAY >30min EMEKA FLORES MD Jul 28, 2024 13:40
[2024-07-28 14:06] VITALS: BP 107/66; PULSE 66; RESP 18; TEMP 98.4; O2SAT 99
== END 2024-07-28 14:40 | disposition home or self-care (01) | DRG 179 ==
LOC: ER 11:08 → OVERFLOW 18:50 → EAST 22:13
PROVIDERS: ADMIT Internal Medicine; ATTEND Internal Medicine
DX: J15.69 Pneumonia due to other Gram-negative bacteria (principal); J15.9 Unspecified bacterial pneumonia; E11.65 Type 2 diabetes mellitus with hyperglycemia; Z20.822 Contact with and (suspected) exposure to COVID-19; D64.9 Anemia, unspecified; Z79.4 Long term (current) use of insulin; Z79.899 Other long term (current) drug therapy
CPT/HCPCS: 36415; 71045; 80048; 80053; 81001; 82962; 83036; 83605; 83880; 84484; 85025; 87426; 87804; 96365; 96367; G0378; J1815

== ENCOUNTER → 2024-11-08 | Outpatient (CLI) | payer MEDICAID, OTHER ==
[~2024-11-08] MED LIST: AUG875T PO; AZIT500T PO; INSUINJ37 SC
[2024-11-08 06:46] LABS: Hematocrit 43.0 % (41.0-53.0); Hemoglobin 14.7 g/dL (13.5-17.5); Mean Corpuscular Hemoglobin 30.4 pg (28.0-32.0); Mean Corpuscular Volume 88.5 fL (80.0-100.0); Nucleated Red Blood Cells % 0.1 %
[2024-11-08 07:02] LABS: Urine Protein, UAD Negative (Negative)
[2024-11-08 07:57] LABS: Alanine Aminotransferase 25 U/L (7-40); Alkaline Phosphatase 95 U/L (46-116); Calcium 9.7 mg/dL (8.7-10.4); Carbon Dioxide 26 mmol/L (20-31); Triglycerides 78 mg/dL (< 150)
[2024-11-08 07:58] LABS: Albumin 4.4 g/dL (3.2-4.8); Anion Gap 10 (5-15); BUN/Creatinine Ratio 18.4 (10.0-20.0); Bilirubin, Total 0.4 mg/dL (0.2-1.0); Blood Urea Nitrogen 16 mg/dL (9-23); Chloride 108 mmol/L (98-107); Cholesterol 178 mg/dL (< 200); Glucose 66 mg/dL (74-106); HDL Cholesterol 57 mg/dL (40-59); Magnesium 1.9 mg/dL (1.6-2.6); Potassium 3.7 mmol/L (3.5-5.1); Sodium 144 mmol/L (136-145); Total Protein 7.3 g/dL (5.7-8.2)
[2024-11-08 08:22] LABS: Uric Acid 6.7 mg/dL (3.7-9.2)
== END | disposition home or self-care (01) ==
LOC: LAB 06:22
PROVIDERS: ATTEND Internal Medicine
DX: E78.49 Other hyperlipidemia (principal); E61.2 Magnesium deficiency; E79.0 Hyperuricemia without signs of inflammatory arthritis and tophaceous disease; E55.9 Vitamin D deficiency, unspecified; D51.9 Vitamin B12 deficiency anemia, unspecified; R94.6 Abnormal results of thyroid function studies; R82.998 Other abnormal findings in urine; R82.90 Unspecified abnormal findings in urine; R82.79 Other abnormal findings on microbiological examination of urine; R73.09 Other abnormal glucose
CPT/HCPCS: 36415; 80053; 80061; 81001; 82306; 82607; 82746; 83036; 83735; 84443; 84480; 84550; 85025; 87086